=== PATIENT | female | born 1960 | race Caucasian/White ===

== ENCOUNTER 2019-11-27 11:20 | Outpatient (CLI) | payer BC, SELFPAY ==
--- NOTE | ~2019-11-27 | MMUS_ITS ---
EXAMINATION: MM diagnostic [facility] LT w reggie, US breast LT limited HISTORY: Follow-up of 12-:00 left breast mass TECHNIQUE: ML, MLO and cc full field and spot 3-D tomosynthesis images of the left breast were perfor med and synthetic 2-D images were generated. CAD analysis was submitted and interpreted. High resolut ion targeted left 12-:00 breast ultrasound was performed. COMPARISON: 05/30/2019 diagnostic left digital mammogram and limited left breast ultrasound FINDINGS: MAMMOGRAPHIC FINDINGS: Approximately 1 x 2 cm mixed soft tissue and fatty mass is again evident in the inner aspect of the u pper outer quadrant of the left breast. ULTRASOUND: Previously reported 9 x 22 x 23.5 mm parallel circumscribed mixed soft tissue and fatty mass at 12-: 00 has diminished mildly in size, currently measuring 22 x 8.4 x 16 mm. No internal vascularity or wolfe spicious shadowing is evident. IMPRESSION: 1. Benign finding 2. Routine mammographic screening is recommended. BI-RADS Category 2: Benign finding(s). Reviewed, dictated and finalized at location A. IMPRESSION: 1. Benign finding 2. Routine mammographic screening is recommended. BI-RADS Category 2: Benign finding(s).
== END 2019-11-27 11:21 | disposition home or self-care (01) ==
LOC: ANHIMG 11:24
PROVIDERS: PCP Family Medicine Adolescent Medicine; Visit Provider Family Medicine Adolescent Medicine
DX: R92.8 Other abnormal and inconclusive findings on diagnostic imaging of breast (principal)
CPT/HCPCS: 76642; 77061; 77065; G0279

== ENCOUNTER 2020-06-23 10:19 | Outpatient (CLI) | payer BC, SELFPAY ==
--- NOTE | ~2020-06-23 | MM_ITS ---
EXAMINATION: MM screening [facility] BI w reggie HISTORY: Screening TECHNIQUE: Craniocaudal and mediolateral oblique 3-D tomosynthesis images were obtained and synthetic 2-D images were generated. CAD analysis was submitted and interpreted. COMPARISON: Comparison to multiple prior studies sequentially, with oldest reviewed study dated 12/14. BREAST PARENCHYMAL COMPOSITION: There are scattered areas of fibroglandular density. FINDINGS: There is no evidence of suspicious mass, calcification, or architectural distortion to sugg est malignancy in either breast. There has been no suspicious interval change. IMPRESSION: 1. No mammographic evidence of malignancy. 2. Recommend routine screening mammography in one year. BI-RADS Category 1: Negative Reviewed, dictated and finalized at location A. HO[facility]ER
== END 2020-06-23 10:20 | disposition home or self-care (01) ==
PROVIDERS: PCP Family Medicine Adolescent Medicine; Visit Provider Obstetrics & Gynecology
DX: Z12.31 Encounter for screening mammogram for malignant neoplasm of breast (principal)
CPT/HCPCS: 77063; 77067

== ENCOUNTER 2021-09-07 12:15 | Outpatient (CLI) | payer BC, SELFPAY ==
--- NOTE | ~2021-09-07 | MM_ITS ---
EXAMINATION: MM screening [facility] BI w reggie HISTORY: Screening mammogram TECHNIQUE: Craniocaudal and mediolateral oblique 3-D tomosynthesis images were obtained and synthetic 2-D images were generated. CAD analysis was submitted and interpreted. COMPARISON: 06/23/2020, 11/27/2019, 05/30/2019 BREAST PARENCHYMAL COMPOSITION: The breasts are heterogeneously dense, which may obscure small masses . FINDINGS: There is no suspicious mass, calcification, or architectural distortion to suggest malignan cy in either breast. There has been no suspicious interval change. IMPRESSION: 1. No mammographic evidence of malignancy. 2. Recommend routine screening mammography in one year. BI-RADS Category 1: Negative Reviewed, dictated and finalized at location A.
== END 2021-09-07 12:16 | disposition home or self-care (01) ==
LOC: ANHIMG 12:17
PROVIDERS: PCP Family Medicine Adolescent Medicine; Visit Provider Obstetrics & Gynecology
DX: Z12.31 Encounter for screening mammogram for malignant neoplasm of breast (principal)
CPT/HCPCS: 77063; 77067

== ENCOUNTER 2022-10-19 16:31 | Outpatient (CLI) | payer BC, SELFPAY ==
--- NOTE | ~2022-10-19 | MM_ITS ---
EXAMINATION: MM screening [facility] BI w reggie HISTORY: Screening mammogram TECHNIQUE: Craniocaudal and mediolateral oblique 3-D tomosynthesis images were obtained and synthetic 2-D images were generated. CAD analysis was submitted and interpreted. COMPARISON: 09/07/2021, 06/23/2020 bilateral screening mammogram examinations BREAST PARENCHYMAL COMPOSITION: There are scattered areas of fibroglandular density. FINDINGS: Stable mild fibroglandular asymmetry. There is no evidence of suspicious mass, calcificatio n, or architectural distortion to suggest malignancy in either breast. There has been no suspicious i nterval change. IMPRESSION: 1. No mammographic evidence of malignancy. 2. Recommend routine screening mammography in one year. BI-RADS Category 1: Negative Reviewed, dictated and finalized at location A.
== END 2022-10-19 16:32 | disposition home or self-care (01) ==
LOC: ANHIMG 16:35
PROVIDERS: PCP Family Medicine Adolescent Medicine; Visit Provider Family Medicine Adolescent Medicine
DX: Z12.31 Encounter for screening mammogram for malignant neoplasm of breast (principal)
CPT/HCPCS: 77063; 77067

== ENCOUNTER 2024-01-02 14:03 | Outpatient (CLI) | payer BC, SELFPAY ==
--- NOTE | ~2024-01-02 | MM_ITS ---
EXAMINATION: MM screening [facility] BI w reggie HISTORY: Screening TECHNIQUE: Craniocaudal and mediolateral oblique 3-D tomosynthesis images were obtained and synthetic 2-D images were generated. CAD analysis was submitted and interpreted. COMPARISON: 05/02/2019 BREAST PARENCHYMAL COMPOSITION: Not dense: There are scattered areas of fibroglandular density. FINDINGS: There are asymmetries in the upper aspect of the right breast on MLO view and upper outer q uadrant of the left breast. There are no suspicious calcifications. IMPRESSION: 1. Bilateral breast asymmetries. 2. Additional mammographic views and possible breast ultrasound are recommended. BI-RADS Category 0: Incomplete: Needs additional imaging evaluation. Reviewed, dictated and finalized at location B. IMPRESSION: 1. Bilateral breast asymmetries. 2. Additional mammographic views and possible breast ultrasound are recommended . BI-RADS Category 0: Incomplete: Needs additional imaging evaluation.
== END 2024-01-02 14:04 | disposition home or self-care (01) ==
LOC: ANHIMG 14:05
PROVIDERS: PCP Family Medicine Adolescent Medicine; Visit Provider Obstetrics & Gynecology
DX: Z12.31 Encounter for screening mammogram for malignant neoplasm of breast (principal); N64.89 Other specified disorders of breast
CPT/HCPCS: 77063; 77067

== ENCOUNTER 2024-01-24 11:39 | Outpatient (CLI) | payer BC, SELFPAY ==
--- NOTE | ~2024-01-24 | MMUS_ITS ---
EXAMINATION: MM diagnostic [facility] BI w reggie, US breast BI limited HISTORY: Follow-up bilateral breast asymmetries. TECHNIQUE: Additional 3-D tomosynthesis images of the breasts were performed and synthetic 2-D images were generated. CAD analysis was submitted and interpreted. High resolution limited bilateral breast ultrasound was performed. COMPARISON: Comparison to multiple prior studies sequentially, with oldest reviewed study dated 05/27. BREAST PARENCHYMAL COMPOSITION: Dense: The breasts are heterogeneously dense, which may obscure small masses FINDINGS: MAMMOGRAPHIC FINDINGS: There is persistent focal asymmetry superiorly in the right breast, best seen on MLO view. No discret e mass or architectural distortion is seen. There is a heterogeneous partially obscured mass in the u pper outer quadrant of the left breast anteriorly. ULTRASOUND: Limited right breast ultrasound: At 12:00 near the nipple there is a heterogeneous mass measuring terence roximately 11 mm with echogenic rim and hypoechoic center. Limited left breast ultrasound: At 12:00, 3 cm from the nipple there is a heterogeneous oval-shaped m ass measuring 2.4 x 1.9 x 0.9 cm without posterior features or internal vascularity. At 1:00, 5 cm fr om the nipple there is a slightly irregular oval hypoechoic 9 mm mass without internal vascularity or posterior features. At 3:00, 2 cm from the nipple there is an irregular shaped heterogeneous 12 mm m ass without internal vascularity. Mixed posterior attenuation. IMPRESSION: 1. Bilateral breast masses as described above. 2. Recommend ultrasound-guided biopsy of bilateral breast masses including masses in the right breast at 12:00 near the nipple and in the left breast at 12:00, 3 cm from the nipple, 1:00, 5 cm from the nipple and 3:00, 2 cm from the nipple. BI-RADS category 4, suspicious findings. Reviewed, dictated and finalized at location B. IMPRESSION: 1. Bilateral breast masses as described above. 2. Recommend ultrasound-guided biopsy of bilateral breast masses including mass es in the right breast at 12:00 near the nipple and in the left breast at 12:00 , 3 cm from the nipple, 1:00, 5 cm from the nipple and 3:00, 2 cm from the nipp le. BI-RADS category 4, suspicious findings.
== END 2024-01-24 11:40 | disposition home or self-care (01) ==
PROVIDERS: PCP Family Medicine Adolescent Medicine; Visit Provider Family Medicine Adolescent Medicine
DX: R92.8 Other abnormal and inconclusive findings on diagnostic imaging of breast (principal)
CPT/HCPCS: 76642; 77062; 77066; G0279

== ENCOUNTER 2024-03-04 13:03 | Outpatient (CLI) | payer BC, SELFPAY ==
--- NOTE | ~2024-03-04 | US_ITS ---
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 Findings are concordant wi th imaging. Reviewed, dictated and finalized at location M.
--- NOTE | ~2024-03-04 | MM_ITS ---
MM post biopsy diagnostic LT 03/04/2024 14:56 INDICATION: Status post recent ultrasound-guided left breast biopsy. TECHNIQUE: Digital diagnostic left mammogram. COMPARISON: 01/24/2024 BREAST PARENCHYMAL COMPOSITION: The breasts are heterogeneously dense, which may obscure small masses . FINDINGS: Postbiopsy changes are noted in the outer left breast, consistent with recent ultrasound gu ided biopsy. Interval placement of 2 tissue marker in the outer to upper outer aspect of the left frankie ast. Please refer to Dr. Miguelina Guerra's procedural report for details.] IMPRESSION: 1: Status post recent left breast biopsy x2, with post procedure mammogram for marker placement. Reviewed, dictated and finalized at location .
--- NOTE | 2024-03-04 12:40 | P.PCNBRBIO_ITS ---
Biopsy Procedure Date of Procedure 03/04/24 Indication Right breast masses at 1:00 5cm and 3:00 2cm from the nipple Impression Same as above Procedure Performed Procedure Performed: US Breast Biopsy with Imaging Surgeon Miguelina Guajardo MD Anesthesia Anesthesia: Local Description of Procedure Description of Procedure: Risk of the procedure were discussed with the patient which included but not limited to risk of bleeding, infection, possible need for repeat biopsy or additional procedures in the future, bruising, hematoma,etc. Benefits and alternatives to procedure were discussed as well. Consent was obtained and a time out was performed. The 1st right breast mass was identified using the US at 1 o'clock position 5 cm from the nipple, and lidocaine with epinephrine was used to anesthetize the skin and tissue surrounding the mass under US guidance. A 10g vacuum assisted device was used to obtain 4 core biopsy specimens under US guidance. An Inrad tissue marker clip was then placed at the biopsy site under US guidance. Pressure was held over the area for 10 minutes with excellent hemostasis. Core needle specimens were sent to pathology in formalin. Patient tolerated the procedure well with no immediate complications. The 2nd right breast mass was identified using the US at 3 o'clock position 2 cm from the nipple, and lidocaine with epinephrine was used to anesthetize the skin and tissue surrounding the mass under US guidance. A 10g vacuum assisted device was used to obtain 4 core biopsy specimens under US guidance. An Inrad tissue marker clip was then placed at the biopsy site under US guidance. Pressure was h eld over the area for 10 minutes with excellent hemostasis. Core needle specimens were sent to pathology in formalin. Patient tolerated the procedure well with no immediate complications. A post-procedure right mammogram was obtained to confirm the tissue marker clip placement.
== END 2024-03-04 13:04 | disposition home or self-care (01) ==
LOC: ANHIMG 13:04
PROVIDERS: PCP Family Medicine Adolescent Medicine; Visit Provider Surgery
DX: D24.2 Benign neoplasm of left breast (principal); N62 Hypertrophy of breast; N60.22 Fibroadenosis of left breast; N63.15 Unspecified lump in the right breast, overlapping quadrants; N63.21 Unspecified lump in the left breast, upper outer quadrant; N63.25 Unspecified lump in the left breast, overlapping quadrants; R92.8 Other abnormal and inconclusive findings on diagnostic imaging of breast
CPT/HCPCS: 19083; 19084; 77065; 88305; A4648

== ENCOUNTER 2024-08-26 13:35 | Outpatient (CLI) | payer BC, SELFPAY | END 2024-08-26 13:36 | disposition home or self-care (01) | LOC: ANHIMG 13:37 | PROVIDERS: PCP Family Medicine Adolescent Medicine; Visit Provider Surgery | DX: R92.8 Other abnormal and inconclusive findings on diagnostic imaging of breast (principal); N63.25 Unspecified lump in the left breast, overlapping quadrants; N63.21 Unspecified lump in the left breast, upper outer quadrant; N63.15 Unspecified lump in the right breast, overlapping quadrants; N63.10 Unspecified lump in the right breast, unspecified quadrant; N63.20 Unspecified lump in the left breast, unspecified quadrant | CPT/HCPCS: 76642; 77062; 77066; G0279 ==

== ENCOUNTER 2024-10-08 10:37 | Outpatient (CLI) | payer BC, SELFPAY ==
--- NOTE | ~2024-10-08 | MR_ITS ---
MR breast BI wo/w con 10/08/2024 12:48 CDT INDICATION: Palpable lump right breast. TECHNIQUE: MRI of the breasts perform using standard protocol pre-and post IV contrast with the follo wing sequences: Axial T2 STIR, axial T1, axial vibrant T1 with fat suppression precontrast and multip hasic postcontrast with 18 cc ProHance administered intravenously. COMPARISON: Comparison to multiple prior studies sequentially, with oldest reviewed study dated 05/27. FINDINGS: There are scattered areas of fibroglandular content. Right breast: There are no abnormalities on the precontrast sequences. There is mild background paren chymal enhancement. No enhancing lesions following contrast administration. No areas of enhancement meeting threshold criteria on CAD analysis. No evidence of signal abnormalities in the axillary or internal mammary node distributions. LEFT BREAST: There is a 1.9 x 1.7 cm mass in the left breast in the upper outer quadrant, anterior th ird which is hypointense on T1 and heterogeneous on T2 with central areas of hyperintensity. No abnor mal enhancement. There is a smaller mass in the upper outer quadrant of the left breast measuring 7 m m which is isointense on T1 and T2 without appreciable enhancement, likely benign. There is mild background parenchymal enhancement. No enhancing lesions following contrast administr ation. No areas of enhancement meeting threshold criteria on CAD analysis. No evidence of signal a bnormalities in the axillary or internal mammary node distributions.] IMPRESSION: 1: Right breast: Negative. No evidence of malignancy. BI-RADS category 1. Recommend annual mammo graphy follow-up. 2: Left breast: Benign-appearing left breast masses described above without appreciable enhancement, likely benign. BI-RADS category 2. Recommend annual mammography follow-up. Follow-up MRI may be useful for supplementing mammographic evaluation as clinically indicated. Reviewed, dictated and finalized at location B. IMPRESSION: 1: Right breast: Negative. No evidence of malignancy. BI-RADS category 1. Recommend annual mammography follow-up. 2: Left breast: Benign-appearing left breast masses described above without ap preciable enhancement, likely benign. BI-RADS category 2. Recommend annual nicci mography follow-up. Follow-up MRI may be useful for supplementing mammographic evaluation as clinic ally indicated.
== END 2024-10-08 10:38 | disposition home or self-care (01) ==
PROVIDERS: PCP Family Medicine Adolescent Medicine; Visit Provider Surgery
DX: R92.8 Other abnormal and inconclusive findings on diagnostic imaging of breast (principal); N63.15 Unspecified lump in the right breast, overlapping quadrants; N63.25 Unspecified lump in the left breast, overlapping quadrants; N63.21 Unspecified lump in the left breast, upper outer quadrant
CPT/HCPCS: 77049; A9579; C8908

== ENCOUNTER 2025-04-15 12:44 | Outpatient (CLI) | payer BC, SELFPAY ==
--- NOTE | ~2025-04-15 | US_ITS ---
EXAMINATION: US breast LT limited INDICATION: 64-year old female; BI-RADS 3, short-term follow-up probably benign left breast masses. COMPARISON: 08/26/2024 and 03/05/2024 TECHNIQUE: Targeted sonographic evaluation of the area of concern in the LEFT breast was completed. FINDINGS: A 2.9 x 1.1 x 2.1 cm parallel oriented Hypoechoic mass at 12:00, 3 cm FN location in the LEFT breast redemonstrated is unchanged. A 0.9 cm Hypoechoic mass containing biopsy clip at 1:00, 5 cm FN location in the LEFT breast redemonstrated is unchanged. A 1.0 cm Hypoechoic mass at 3:00, 2 cm FN location in the LEFT breast redemonstrated is unchanged. IMPRESSION: Probably benign Hypoechoic LEFT breast masses are unchanged. RECOMMENDATION: 6 month follow-up diagnostic BILATERAL mammogram and LEFT breast ultrasound. BI-RADS category 3, probably benign findings. Reviewed, dictated and finalized at location B. IMPRESSION: Probably benign Hypoechoic LEFT breast masses are unchanged. RECOMMENDATION: 6 month follow-up diagnostic BILATERAL mammogram and LEFT breas t ultrasound. BI-RADS category 3, probably benign findings.
== END 2025-04-15 12:45 | disposition home or self-care (01) ==
LOC: ANHFOHIMG 12:46
PROVIDERS: PCP Family Medicine Adolescent Medicine; Visit Provider Surgery
DX: N63.25 Unspecified lump in the left breast, overlapping quadrants (principal); R92.8 Other abnormal and inconclusive findings on diagnostic imaging of breast
CPT/HCPCS: 76642